=== PATIENT | female | born 1970 | race Caucasian/White ===

== ENCOUNTER → 2017-05-19 | Outpatient (CLI) | payer OTHER ==
--- NOTE | 2017-05-20 14:24 | WOMENS IMAGING REPORT ---
EXAM DESCRIPTION: 3D SCREENING MAMMO BILAT COMPLETED DATE/TIME: 05/19/2017 2:29 pm REASON FOR STUDY: ROUTINE SCREENING; Z12.31 Z12.31 ENCNTR SCREEN MAMMOGRAM FOR MALIGNANT NEOPLASM O F [place] COMPARISON: 2015 TECHNIQUE: Standard craniocaudal and mediolateral oblique views of each breast recorded using digita l acquisition and breast tomosynthesis. LIMITATIONS: None. FINDINGS: RIGHT BREAST MASSES: No suspicious masses. CALCIFICATIONS: No new or suspicious calcifications. ARCHITECTURAL DISTORTION: None. DEVELOPING DENSITY: None. ASYMMETRY: None noted. OTHER: No other significant findings. LEFT BREAST MASSES: Slightly irregular 4 mm mass retroareolar 2 cm from the nipple seen only on the CC view CALCIFICATIONS: No new or suspicious calcifications. ARCHITECTURAL DISTORTION: None. DEVELOPING DENSITY: None. ASYMMETRY: None noted. OTHER: No other significant findings. Read with the assistance of CAD. .[facility] - R2 Cenova Version 1.3 .[facility] Imaging - R2 Cenova Version 1.3 .[facility] Imaging - R2 Cenova Version 2.4 .[facility] [place] [facility] - R2 Cenova Version 2.4 .[facility] - R2 Director Of Recreation Therapy Version 9.2 IMPRESSION: Retroareolar mass left breast BREAST DENSITY: b. There are scattered areas of fibroglandular density. BIRAD: 0 Incomplete: Needs Additional Imaging Evaluation and/or prior Mammograms for Comparison. RECOMMENDATION: RECOMMENDED FOLLOW-UP: Spot compression. Ultrasound. The patient will be contacted for additional imaging. COMMENT: The patient has been notified of the results by letter per SA requirements. Additional no tification policies are in place for contacting patient with suspicious or incomplete findings. Quality ID #225: The [employer] recommends an annual screening mammogram for women aged 40 years or over. This facility utilizes a reminder system to ensure that all patients receive reminder letters, and/or direct phone calls for appointments. This includes reminders for routine scr eening mammograms, diagnostic mammograms, or other Breast Imaging Interventions when appropriate. Th is patient will be placed in the appropriate reminder system. The [employer] (ACR) has developed recommendations for screening MRI of the breast s in certain patient populations, to be used in conjunction with mammography. Breast MRI surveillanc e may be appropriate for women with more than 20% lifetime risk of developing breast cancer as deter mined by genetic testing, significant family history of the disease, or history of mantle radiation f or Hodgkins Disease. ACR Practice Guidelines 2008. DBT Technology DBT is a type of tomographic mammography. With conventional mammography, overlapping breast tissue ma y make lesions difficult to detect, even with good compression. DBT uses an x-ray tube that rotates a round the breast, taking images at different angles. These images are then combined to create thin sl ices of the breast that the radiologist can view as a 3D reconstruction. The [employer] unit can perform full-field digital mammograms (2D imaging); or DBT (3D imaging); or both, in a combination mode that quickly performs both the mammogram and the tomosynthesis scan while the breast is still compressed. PQRS 6045F: Fluoroscopic imaging is not utilized for breast tomosynthesis. TECHNICAL DOCUMENTATION: FINDING NUMBER: (1) ASSESSMENT: (1) JOB ID: [id number] [employer]- All Rights Reserved
== END ==
LOC: WI 14:06
PROVIDERS: ATTEND Physician Assistant
DX: Z12.31 Encounter for screening mammogram for malignant neoplasm of breast (principal); N63.42 Unspecified lump in left breast, subareolar
CPT/HCPCS: 77063; G0202; 77067

== ENCOUNTER → 2017-06-09 | Outpatient (CLI) | payer OTHER ==
--- NOTE | 2017-06-11 09:19 | WOMENS IMAGING REPORT ---
EXAM DESCRIPTION: LEFT DIAGNOSTIC MAMMO W/CAD; U/S BREAST UNILAT LIMITED COMPLETED DATE/TIME: 06/09/2017 12:41 pm; 06/09/2017 1:46 pm REASON FOR STUDY: UNSPECIFIED LUMP; N63.42; LEFT BREAST MASS N63.42 N63.42 UNSPECIFIED LUMP IN LEFT BREAST, SUBAREOLAR COMPARISON: 09/28/2015, 05/19/2017 TECHNIQUE: Cone compression craniocaudal and mediolateral oblique images of the breast recorded with digital acquisition. Left breast 90 mediolateral view. Left breast ultrasound was also performed. LIMITATIONS: None. FINDINGS: BREAST: Left MASSES: In the 12 o'clock retroareolar region left breast, the 3 to 4 mm well-circumscribed low-densi ty mammographic nodule is present which was subsequently shown at ultrasound to represent a small cys t CALCIFICATIONS: No new or suspicious calcifications. ARCHITECTURAL DISTORTION: None. DEVELOPING DENSITY: None. ASYMMETRY: None noted. OTHER: No other significant findings. Read with the assistance of CAD. .[facility] - R2 Cenova Version 1.3 .[facility] Imaging - R2 Cenova Version 1.3 .[facility] Imaging - R2 Cenova Version 2.4 .[facility] - R2 Cenova Version 2.4 .[facility] - R2 Recreational Director Version 9.2 Left breast ultrasound: Ultrasound of the left breast demonstrates a 3 to 4 mm cyst at the 12 o'clock position, and a [address] at the 3 o'clock position periareolar region. IMPRESSION: No mammographic or sonographic evidence for malignancy left breast BREAST DENSITY: c. The breasts are heterogeneously dense, which may obscure small masses. BIRAD: 2 Benign findings. RECOMMENDATION: RECOMMENDED FOLLOW UP: Please continue yearly bilateral screening tomosynthesis Dece mber 2018 SPECIFIC INTERVENTION/IMAGING/CONSULTATION RECOMMENDED:No additional intervention/ imaging/consultati on needed at this time. COMMUNICATION:The negative/benign results were communicated to the patient. COMMENT: The patient has been notified of the results by letter per MQSA requirements. Additional no tification policies are in place for contacting patient with suspicious or incomplete findings. Quality ID #[id number]: The [employer] recommends an annual screening mammogram for women aged 40 years or over. This facility utilizes a reminder system to ensure that all patients receive reminder letters, and/or direct phone calls for appointments. This includes reminders for routine scr eening mammograms, diagnostic mammograms, or other Breast Imaging Interventions when appropriate. Th is patient will be placed in the appropriate reminder system. The [employer] (ACR) has developed recommendations for screening MRI of the breast s in certain patient populations, to be used in conjunction with mammography. Breast MRI surveillanc e may be appropriate for women with more than 20% lifetime risk of developing breast cancer as deter mined by genetic testing, significant family history of the disease, or history of mantle radiation f or Hodgkins Disease. ACR Practice Guidelines 2008. TECHNICAL DOCUMENTATION: FINDING NUMBER: (1) ASSESSMENT: (1) JOB ID: [id number] [employer]- All Rights Reserved
--- NOTE | 2017-06-11 09:19 | WOMENS IMAGING REPORT ---
EXAM DESCRIPTION: LEFT DIAGNOSTIC MAMMO W/CAD; U/S BREAST UNILAT LIMITED COMPLETED DATE/TIME: 06/09/2017 12:41 pm; 06/09/2017 1:46 pm REASON FOR STUDY: UNSPECIFIED LUMP; N63.42; LEFT BREAST MASS N63.42 N63.42 UNSPECIFIED LUMP IN LEFT BREAST, SUBAREOLAR COMPARISON: 09/28/2015, 05/19/2017 TECHNIQUE: Cone compression craniocaudal and mediolateral oblique images of the breast recorded with digital acquisition. Left breast 90 mediolateral view. Left breast ultrasound was also performed. LIMITATIONS: None. FINDINGS: BREAST: Left MASSES: In the 12 o'clock retroareolar region left breast, the 3 to 4 mm well-circumscribed low-densi ty mammographic nodule is present which was subsequently shown at ultrasound to represent a small cys t CALCIFICATIONS: No new or suspicious calcifications. ARCHITECTURAL DISTORTION: None. DEVELOPING DENSITY: None. ASYMMETRY: None noted. OTHER: No other significant findings. Read with the assistance of CAD. .[facility] - R2 Cenova Version 1.3 .[facility] Imaging - R2 Cenova Version 1.3 .[facility] Imaging - R2 Cenova Version 2.4 .[facility] - R2 Cenova Version 2.4 .[facility] - R2 Building Associate Version 9.2 Left breast ultrasound: Ultrasound of the left breast demonstrates a 3 to 4 mm cyst at the 12 o'clock position, and a [address] at the 3 o'clock position periareolar region. IMPRESSION: No mammographic or sonographic evidence for malignancy left breast BREAST DENSITY: c. The breasts are heterogeneously dense, which may obscure small masses. BIRAD: 2 Benign findings. RECOMMENDATION: RECOMMENDED FOLLOW UP: Please continue yearly bilateral screening tomosynthesis Dece mber 2018 SPECIFIC INTERVENTION/IMAGING/CONSULTATION RECOMMENDED:No additional intervention/ imaging/consultati on needed at this time. COMMUNICATION:The negative/benign results were communicated to the patient. COMMENT: The patient has been notified of the results by letter per MQSA requirements. Additional no tification policies are in place for contacting patient with suspicious or incomplete findings. Quality ID #225: The [employer] recommends an annual screening mammogram for women aged 40 years or over. This facility utilizes a reminder system to ensure that all patients receive reminder letters, and/or direct phone calls for appointments. This includes reminders for routine scr eening mammograms, diagnostic mammograms, or other Breast Imaging Interventions when appropriate. Th is patient will be placed in the appropriate reminder system. The [employer] (ACR) has developed recommendations for screening MRI of the breast s in certain patient populations, to be used in conjunction with mammography. Breast MRI surveillanc e may be appropriate for women with more than 20% lifetime risk of developing breast cancer as deter mined by genetic testing, significant family history of the disease, or history of mantle radiation f or Hodgkins Disease. ACR Practice Guidelines 2008. TECHNICAL DOCUMENTATION: FINDING NUMBER: (1) ASSESSMENT: (1) JOB ID: [id number] [employer]- All Rights Reserved
== END ==
LOC: WI 12:03
PROVIDERS: ATTEND Physician Assistant
DX: N63.42 Unspecified lump in left breast, subareolar (principal)
CPT/HCPCS: 76642

== ENCOUNTER 2018-02-23 13:44 | Emergency (ER) | payer OTHER ==
--- NOTE | 2018-02-23 14:46 | ER Document Report ---
HPI - HPI Patient complains to provider of: injured right foot Onset: Just prior to arrival Quality of pain: Throbbing Pain Level: 3 Context: 47 yo female injured right plantar foreffot getting out of truck today. Exacerbated by: Walking Relieved by: Denies Similar symptoms previously: No Recently seen / treated by doctor: No - ROS ROS below otherwise negative: Yes Systems Reviewed and Negative: Yes All other systems reviewed and negative Past Medical History - General Information source: Patient - Social History Smoking Status: Unknown if Ever Smoked Lives with: Spouse/Significant other Family History: Reviewed & Not Pertinent - Medical History Medical History: Negative Surgical Hx: Negative Vertical Provider Document - CONSTITUTIONAL Agree With Documented VS: Yes Exam Limitations: No Limitations General Appearance: No Apparent Distress - INFECTION CONTROL TRAVEL OUTSIDE OF THE [place] IN LAST 30 DAYS: No - MUSCULOSKELETAL/EXTREMETIES Musculoskeletal/Extremeties: MAEW, Tender - plantar right foot at the 2-4 distal MTP's, No Edema - NEURO Level of Consciousness: Awake Course - Re-evaluation Re-evalutation: 02/23/18 xray negative per rad - Vital Signs Vital signs: Temp Pulse Resp BP Pulse Ox 97.5 F 94 18 134/84 H 99 02/23/18 13:53 02/23/18 13:53 02/23/18 13:53 02/23/18 13:53 02/23/18 13:53 Procedures - Immobilization Right Foot Time completed: 16:35 Pre-Proc Neuro Vasc Exam: Normal Immobilizer type: Edward wrap Performed by: PCT Post-Proc Neuro Vasc Exam: Normal Alignment checked and good: Yes Discharge - Discharge Clinical Impression: Right foot contusion Condition: Good Disposition: HOME, SELF-CARE Instructions: Acetaminophen, Edward Wrap ([facility]), Contusion ([facility]), Use of Crutches ( [facility]), Ibuprofen (General) ([facility]) Additional Instructions: Edward wrap for comfort Crutches for a few days Call me for the final x-ray report at [phone] Referrals: RUPA HUDSON PA-C [Primary Care Provider] - Follow up as needed
[2018-02-23] MEDS ORDERED: ACETAMINOPHEN 325 MG TABLET PO ONE (15:01)
[2018-02-23] MEDS ORDERED: IBUPROFEN 600 MG TABLET PO ONE (15:01)
--- NOTE | 2018-02-23 16:23 | RADIOLOGY REPORT (SQ) ---
EXAM DESCRIPTION: FOOT RIGHT COMPLETE COMPLETED DATE/TIME: 02/23/2018 3:59 pm REASON FOR STUDY: injury pain in right forefoot, stepped on something COMPARISON: None. NUMBER OF VIEWS: Three views. TECHNIQUE: AP, lateral and oblique radiographic images acquired of the right foot. LIMITATIONS: None. FINDINGS: MINERALIZATION: Normal. BONES: No acute fracture or dislocation. No worrisome bone lesions. JOINTS: No effusions. SOFT TISSUES: No soft tissue swelling. No foreign body. OTHER: No other significant finding. IMPRESSION: NEGATIVE STUDY OF THE RIGHT FOOT. NO RADIOGRAPHIC EVIDENCE OF ACUTE INJURY. TECHNICAL DOCUMENTATION: JOB ID: [id number] [employer]- All Rights Reserved Reading location - IP/workstation name: [email or web address]
[2018-02-23 16:35] VITALS: BP 125/77
== END 2018-02-23 16:35 | disposition home or self-care (01) ==
LOC: ER 13:44
DX: S90.31XA Contusion of right foot, initial encounter (principal); X58.XXXA Exposure to other specified factors, initial encounter
CPT/HCPCS: 99283

== ENCOUNTER 2019-05-06 22:36 | Emergency (ER) | payer OTHER ==
--- NOTE | 2019-05-06 23:06 | ER Document Report ---
ED Medical Screen (RME) - General Stated Complaint: CONSTIPATED Time Seen by Provider: 05/06/19 23:01 Primary Care Provider: RUPA HUDSON PA-C [Primary Care Provider] - Follow up as needed Mode of Arrival: Ambulatory Information source: Patient Notes: 48-year-old female presenting to the emergency department with acute constipation. Patient reports she had a bone graft done to her jaw in preparation for some dental implants. She states she has been on steroids and Percocet. She states that she does not remember the last time she had a normal bowel movement. Today she states that she felt like she had a bowel movement and has been trying to have a BM since 9 AM. Her reports he looked at her rectal area and states that there is a very large ball of stool at the edge of the rectum. He states he took her to the store and got her mag citrate and liquid Dulcolax, she has taken all of this and has had no results. Exam: Patient appears very uncomfortable, crying in triage. Abdominal evaluation deferred until patient in room. I have greeted and performed a rapid initial assessment of this patient. A comprehensive ED assessment and evaluation of the patient, analysis of test results and completion of the medical decision making process will be conducted by additional ED providers. I have specifically instructed the patient or family members with the patient to immediately return to any nursing staff should anything change in the patient's condition or with their chief complaint. This medical record was dictated with voice recognizing software. There may be grammatical, syntax errors that are unintended. TRAVEL OUTSIDE OF THE [place] IN LAST 30 DAYS: No - Related Data Allergies/Adverse Reactions: codeine Allergy (Verified 02/23/18 13:46) Past Medical History Renal/ Medical History: Denies: Hx Peritoneal Dialysis Physical Exam - Vital signs Vitals: Temp Pulse Resp BP Pulse Ox 97.5 F 118 H 24 H 126/83 H 98 05/06/19 22:45 05/06/19 22:45 05/06/19 22:45 05/06/19 22:45 05/06/19 22:45 Course - Vital Signs Vital signs: Temp Pulse Resp BP Pulse Ox 97.5 F 118 H 24 H 126/83 H 98 05/06/19 22:45 05/06/19 22:45 05/06/19 22:45 05/06/19 22:45 12/05/19 22:45 Doctor's Discharge - Discharge Referrals: RUPA HUDSON PA-C [Primary Care Provider] - Follow up as needed
--- NOTE | 2019-05-07 00:08 | RADIOLOGY REPORT (SQ) ---
EXAM DESCRIPTION: XR ABDOMEN 1 VIEW (KUB) COMPLETED DATE/TME: 05/06/2019 23:04 CLINICAL HISTORY: 48 years Female, eval for constipation COMPARISON: None. NUMBER OF VIEWS/TECHNIQUE: 1 FINDINGS: Intestinal gas pattern is within normal limits. Paucity of bowel gas. Colonic stool retention. No suspicious calcification. Grossly intact skeletal structures. IMPRESSION: No acute findings.
[2019-05-07] MEDS ORDERED: ACETAMINOPHEN 325 MG TABLET PO ONE (01:58)
[2019-05-07] MEDS ORDERED: MINERAL OIL 30 ML UDCUP PR ONE (03:10)
[2019-05-07] MEDS ORDERED: KETOROLAC TROMETHAMINE 60 MG/2 ML SDV IM ONE (03:10)
[2019-05-07] MEDS ORDERED: PROMETHAZINE HCL 25 MG TABLET PO ONE (03:10)
--- NOTE | 2019-05-07 03:11 | ER Document Report ---
ED GI/ - General Chief Complaint: Constipation Stated Complaint: CONSTIPATED Time Seen by Provider: 05/06/19 23:01 Primary Care Provider: RUPA HUDSON PA-C [Primary Care Provider] - Follow up as needed Mode of Arrival: Ambulatory Notes: Patient is a 48-year-old female that comes emergency department for chief complaint of constipation. She states she had a bone graft done to her jaw in p reparation for dental implants and she has been on steroids and Percocet, she states she was given a 10-day supply of Percocet, she stopped the last dose a couple of days ago but she has not had a bowel movement in several days. She states that she is starting to get bloated in her abdomen, she states that she took magnesium citrate and liquid Dulcolax and still had no bowel movement. She states she started having worse cramping so she came in. She denies vomiting, fever, dysuria, or bloody stools. She states she is in menopause. She denies any abdominal surgeries. TRAVEL OUTSIDE OF THE [place] IN LAST 30 DAYS: No - Related Data Allergies/Adverse Reactions: codeine Allergy (Verified 02/23/18 13:46) Home Medications: none regularly Past Medical History - General Information source: Patient - Social History Smoking Status: Current Every Day Smoker Chew tobacco use (# tins/day): No Frequency of alcohol use: None Drug Abuse: None Lives with: Family Family History: Reviewed & Not Pertinent Patient has suicidal ideation: No Patient has homicidal ideation: No Renal/ Medical History: Denies: Hx Peritoneal Dialysis - Immunizations Hx Diphtheria, Pertussis, Tetanus Vaccination: Yes Review of Systems - Review of Systems Constitutional: No symptoms reported EENT: No symptoms reported Cardiovascular: No symptoms reported Respiratory: No symptoms reported Gastrointestinal: See HPI Genitourinary: No symptoms reported Female Genitourinary: No symptoms reported Musculoskeletal: No symptoms reported Skin: No symptoms reported Hematologic/Lymphatic: No symptoms reported Neurological/Psychological: No symptoms reported Physical Exam - Vital signs Vitals: Temp Pulse Resp BP Pulse Ox 97.5 F 118 H 24 H 126/83 H 98 05/06/19 22:45 05/06/19 22:45 05/06/19 22:45 05/06/19 22:45 05/06/19 22:45 - Notes Notes: GENERAL: Alert, interacts well. No acute distress. HEAD: Normocephalic, atraumatic. EYES: Pupils equal, round, and reactive to light. Extraocular movements intact. ENT: Oral mucosa moist, tongue midline. Oropharynx unremarkable. Airway patent. NECK: Full range of motion. Supple. Trachea midline. LUNGS: Clear to auscultation bilaterally, no wheezes, rales, or rhonchi. No respiratory distress. HEART: Borderline tachycardic, normal rhythm, no murmur ABDOMEN: Questionable minimal distention, bowel sounds present, mild generalized tenderness without guarding or rigidity. No rebound tenderness. RECTAL: There is a hemorrhoid at the 4 o'clock position, external, not large or thrombosed, no severe pain, no surrounding erythema noted, otherwise unremarkable. Exam performed with Joy CAMPOS at bedside EXTREMITIES: Moves all 4 extremities spontaneously. No edema, normal radial and dorsalis pedis pulses bilaterally. No cyanosis. BACK: no cervical, thoracic, lumbar midline tenderness. No saddle anesthesia, normal distal neurovascular exam. Moves all extremities in full range of motion. NEUROLOGICAL: Alert and oriented x3. Normal speech. Cranial nerves II through XII grossly intact. PSYCH: Normal affect, normal mood. SKIN: Warm, dry, normal turgor. No rashes or lesions noted. Course - Re-evaluation Re-evalutation: On my evaluation patient has some generalized mild discomfort over the abdomen without severe tenderness suggesting acute abdomen. X-ray does confirm constipation. No obstruction seen. No vomiting or fever. Patient does not appear toxic and only appears mildly uncomfortable. She was given Toradol, f luids, Phenergan. She is also noted to have an external hemorrhoid without current bleeding or signs of infection. Discussed options with patient, decision was made to proceed with enema. Patient did have some results with enema but not extremely good results. She is requesting to go home, she has been here a long time, she states she would like to take medications at home for this and we discussed options and she was given multiple options. I discussed these at length, discussed follow-up, discussed return precautions in detail. Patient and state appreciation and agreement. Stable at time of discharge. - Vital Signs Vital signs: Temp Pulse Resp BP Pulse Ox 97.6 F 99 18 133/77 H 97 05/07/19 05:40 05/07/19 05:40 05/07/19 05:40 05/07/19 05:40 05/07/19 05:40 Discharge - Discharge Clinical Impression: External hemorrhoid Abdominal pain Qualifiers: Abdominal location: generalized Qualified Code(s): R10.84 - Generalized abdominal pain Constipation Qualifiers: Constipation type: unspecified constipation type Qualified Code(s): K59.00 - Constipation, unspecified Condition: Stable Disposition: HOME, SELF-CARE Additional Instructions: You do have a lot of stool retention seen on the x-ray, most likely because of your recent opiate use. We attempted to loosen this using the enema, you will most likely pass stool at home. You can use the gentler Colace stool softener as prescribed, if you do not have good results you can use the stronger lactulose instead, I do not recommend using them both at the same time. Drink plenty of fluids, take Phenergan if needed for nausea, take ibuprofen or Tylenol for pain, use the Anusol for the hemorrhoid, and follow-up with primary care for additional management. Come back if you worsen including fever, vomiting, severe worsening pain, or any other concerning or worsening symptoms. Prescriptions: Phenylephrine HCl [Anusol Suppository] 1 supp.rect FL BID #28 supp.rect Docusate Sodium [Colace 100 mg Capsule] 100 mg PO ASDIR PRN #30 capsule PRN Reason: Lactulose 10 gm PO BID PRN #1 bottle PRN Reason: Promethazine HCl [Phenergan 25 mg Tablet] 25 mg PO Q6H PRN #15 tablet PRN Reason: Referrals: RUPA HUDSON PA-C [Primary Care Provider] - Follow up as needed
[2019-05-07] MEDS ORDERED: LIDOCAINE 2% VISCOUS SOLN 20 ML UDCUP PO ONE (04:02)
[2019-05-07] MEDS ORDERED: NORMAL SALINE 1000 ML 1,000 ML IV ONE (04:04)
[2019-05-07 05:47] VITALS: BP 133/77
== END 2019-05-07 05:48 | disposition home or self-care (01) ==
LOC: ER 22:36
DX: K59.00 Constipation, unspecified (principal); K64.4 Residual hemorrhoidal skin tags; R10.84 Generalized abdominal pain; F17.200 Nicotine dependence, unspecified, uncomplicated; Z98.890 Other specified postprocedural states; Z88.6 Allergy status to analgesic agent; Z88.5 Allergy status to narcotic agent
CPT/HCPCS: 99283; 96372; 96360; 74018; J1885; J3490 ×2; J7030

== ENCOUNTER → 2019-07-05 | Outpatient (CLI) | payer OTHER ==
--- NOTE | 2019-07-05 11:39 | WOMENS IMAGING REPORT ---
EXAM DESCRIPTION: BILAT SCREENING MAMMO W/CAD COMPLETED DATE/TIME: 07/05/2019 8:11 am REASON FOR STUDY: Z12.31 SCREENING MAMMO Z12.31 ENCNTR SCREEN MAMMOGRAM FOR MALIGNANT NEOPLASM OF B RE COMPARISON: 2015 and subsequent. EXAM PARAMETERS: Standard craniocaudal and mediolateral oblique views of each breast recorded using digital acquisition. Read with the assistance of CAD. .[facility] Director Of Strategic Marketing Version 9.2 LIMITATIONS: None. FINDINGS: No suspicious masses, suspicious calcifications or architectural distortion. No areas of c oncern. IMPRESSION: Negative MAMMOGRAM. BIRADS 1 BREAST DENSITY: c. The breasts are heterogeneously dense, which may obscure small masses. BIRAD: ASSESSMENT: 1 NEGATIVE RECOMMENDATION: ROUTINE SCREENING COMMENT: The patient has been notified of the results by letter per MQSA requirements. Additional no tification policies are in place for contacting patient with suspicious or incomplete findings. Quality ID #225: The [employer] recommends an annual screening mammogram for women aged 40 years or over. This facility utilizes a reminder system to ensure that all patients receive reminder letters, and/or direct phone calls for appointments. This includes reminders for routine scr eening mammograms, diagnostic mammograms, or other Breast Imaging Interventions when appropriate. Th is patient will be placed in the appropriate reminder system. TECHNICAL DOCUMENTATION: FINDING NUMBER: (1) ASSESSMENT: (1) JOB ID: [id number] [employer]- All Rights Reserved Reading location - IP/workstation name: [email or web address]
== END ==
LOC: WI 07:40
PROVIDERS: ATTEND Physician Assistant
DX: Z12.31 Encounter for screening mammogram for malignant neoplasm of breast (principal)
CPT/HCPCS: 77067